=== PATIENT | female | born 1950 | race Caucasian/White ===

== ENCOUNTER 2021-07-26 15:03 | Emergency (ER) | payer MEDICARE, OTHER ==
[2021-07-26] MEDS ORDERED: Sodium Chloride 0.9% 10 ML Syringe FLUSH PRN (15:20)
[2021-07-26] MEDS ORDERED: Ondansetron 4 MG/2 ML SDV IVPUSH ONE (15:23)
[2021-07-26] MEDS ORDERED: Morphine 4 MG/ML Syringe IVPUSH ONE (15:23)
[2021-07-26] MEDS ORDERED: Sodium Chloride 0.9% 1,000 ML IV SCH (15:30)
[2021-07-26 15:51] LABS: PTT,PARTIAL THROMBOPLSTIN TIME 29.2 SEC (20.5-30.9)
[2021-07-26] MEDS ORDERED: Metoclopramide 10 MG/2 ML SDV IVPUSH ONE (17:19)
[2021-07-26 17:49] VITALS: BP 147/87; PULSE 77
[2021-07-26] MEDS ORDERED: Take Home: Ondansetron 4 MG Tab.DIS, 5 Tab Pack PO ONE (17:52)
== END 2021-07-26 18:11 | disposition home or self-care (01) ==
LOC: VM.ED 15:03
DX: K52.9 Noninfective gastroenteritis and colitis, unspecified (principal); E78.00 Pure hypercholesterolemia, unspecified; I10 Essential (primary) hypertension; K21.9 Gastro-esophageal reflux disease without esophagitis; E66.9 Obesity, unspecified; Z68.30 Body mass index [BMI] 30.0-30.9, adult; Z88.0 Allergy status to penicillin; Z88.5 Allergy status to narcotic agent; Z88.8 Allergy status to other drugs, medicaments and biological substances; Z79.899 Other long term (current) drug therapy
CPT/HCPCS: 36415; 74177; 82247; 83605; 83690; 83735; 84075; 84100; 84450; 84460; 85610; 85730; 86140; 96374; 96375; 99284; 99284-25; J2270; J2405; J2765; Q0162

== ENCOUNTER 2022-01-13 06:32 | Day surgery (SDC) | payer MEDICARE, OTHER ==
[2022-01-13] MEDS ORDERED: Lactated Ringers 1,000 ML IV SCH (07:00)
[2022-01-13] MEDS ORDERED: Propofol 200 MG/20 ML SDV ONE (08:12)
[2022-01-13] MEDS ORDERED: fentaNYL 100 MCG/2 ML SDV ONE (08:12)
[2022-01-13 09:02] VITALS: BP 101/60; PULSE 53
== END 2022-01-13 09:38 | disposition home or self-care (01) ==
LOC: VM.SDS 06:32
PROVIDERS: ATTEND Family Medicine
DX: K31.89 Other diseases of stomach and duodenum (principal); K29.60 Other gastritis without bleeding; K29.80 Duodenitis without bleeding; I10 Essential (primary) hypertension; I25.10 Atherosclerotic heart disease of native coronary artery without angina pectoris; J44.9 Chronic obstructive pulmonary disease, unspecified; E66.9 Obesity, unspecified; K21.9 Gastro-esophageal reflux disease without esophagitis; F32.A Depression, unspecified; E78.00 Pure hypercholesterolemia, unspecified; G62.9 Polyneuropathy, unspecified; Z98.890 Other specified postprocedural states; Z79.899 Other long term (current) drug therapy; Z88.1 Allergy status to other antibiotic agents; Z88.8 Allergy status to other drugs, medicaments and biological substances; Z68.30 Body mass index [BMI] 30.0-30.9, adult
CPT/HCPCS: 00731; 43239; 88305; 88342; J2704; J3010; J7120